=== PATIENT | female | born 2000 | race African-American/Black ===

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

== ENCOUNTER 2022-02-21 16:00 | Emergency (ER) | payer MEDICAID, OTHER ==
[~2022-02-21] VITALS: Ht 175.3 cm; Wt 72.1 kg
[2022-02-21 16:32] VITALS: BP 95/63
== END 2022-02-21 17:07 ==
LOC: ER 16:00
DX: J45.909 Unspecified asthma, uncomplicated (principal)